=== PATIENT | female | born 1985 | race African-American/Black ===

== ENCOUNTER → 2018-05-02 | Outpatient (CLI) | payer OTHER ==
[~2018-05-02] MED LIST: AMOXICILLIN875 MG PO; NORCO 5-325 TA1 EACH PO; VISTARIL 25 MG25 M1 PO
== END ==
LOC: ULTRA 16:10
DX: R22.32 Localized swelling, mass and lump, left upper limb (principal); Z87.891 Personal history of nicotine dependence